=== PATIENT | female | born 1980 | race Native Hawaiian/Other Pacific Islander ===

== ENCOUNTER 2017-05-21 22:43 | Emergency (ER) | payer OTHER ==
[~2017-05-21] VITALS: Ht 149.9 cm; Wt 49.9 kg
[2017-05-21] MEDS ORDERED: ALPR0.5T24 PO (23:28)
[2017-05-22 00:12] LABS: PLATELET COUNT 241 K/uL (152-353)
[2017-05-22 00:18] LABS: POTASSIUM 3.3 mmol/L (3.6-5.2); SODIUM 139 mmol/L (136-145)
== END 2017-05-22 01:53 | disposition home or self-care (01) ==
LOC: ED 22:43
DX: G43.909 Migraine, unspecified, not intractable, without status migrainosus (principal)
CPT/HCPCS: 80053; 85027; 96374; 96375; 99284; J1100; J1200; J1885; J2405; J2550

== ENCOUNTER 2018-04-10 22:47 | Emergency (ER) | payer OTHER ==
[~2018-04-10] VITALS: Ht 149.9 cm; Wt 52.2 kg
[~2018-04-10 22:47] MED LIST: ALPR0.5T24 PO
== END 2018-04-11 00:10 | disposition home or self-care (01) ==
LOC: ED 22:47
DX: I10 Essential (primary) hypertension (principal)
CPT/HCPCS: 93005; 99283

== ENCOUNTER 2018-11-15 14:58 | Emergency (ER) | payer OTHER ==
[~2018-11-15] VITALS: Ht 149.9 cm; Wt 49.9 kg
[2018-11-15 15:06] VITALS: TEMP 97.9
[2018-11-15] MEDS ORDERED: LISI5TAB10 PO (15:10)
[2018-11-15 15:27] LABS: PLATELET COUNT 179 K/uL (152-353)
[2018-11-15 15:55] VITALS: BP 142/94
== END 2018-11-15 16:05 | disposition home or self-care (01) ==
LOC: ED 14:58
DX: J32.0 Chronic maxillary sinusitis (principal); J32.2 Chronic ethmoidal sinusitis
CPT/HCPCS: 36415; 85027; 99283

== ENCOUNTER 2020-08-19 00:03 | Emergency (ER) | payer OTHER ==
[~2020-08-19] VITALS: Ht 149.9 cm; Wt 49.9 kg
[~2020-08-19 00:03] MED LIST changes: +LISI5TAB10 PO
[2020-08-19 00:54] LABS: PLATELET COUNT 161 K/uL (152-353)
[2020-08-19 01:22] LABS: POTASSIUM 3.9 mmol/L (3.6-5.2)
[2020-08-19 01:55] VITALS: BP 119/79; TEMP 98.7
== END 2020-08-19 01:55 | disposition home or self-care (01) ==
LOC: ED 00:03
PROVIDERS: Emergency Medicine Emergency Medical Services
DX: J20.9 Acute bronchitis, unspecified (principal)
CPT/HCPCS: 36415; 80053; 85027; 94664; 96360; 96361; 96375; 99284; J1100; J2405

== ENCOUNTER 2021-01-15 08:31 | Outpatient (CLI) | payer OTHER | END 2021-01-15 19:25 | disposition home or self-care (01) | LOC: MRI 08:31 | PROVIDERS: ATTEND Psychiatry & Neurology Neurology | DX: Z86.03 Personal history of neoplasm of uncertain behavior (principal) | CPT/HCPCS: A9576 ==

== ENCOUNTER 2021-05-18 16:08 | Emergency (ER) | payer OTHER ==
[2021-05-26 09:53] LABS: SODIUM 138 mmol/L (136-145)
[2021-05-26 09:54] LABS: POTASSIUM 3.4 mmol/L (3.6-5.2)
[2021-05-26 09:56] LABS: PLATELET COUNT 162 K/uL (152-353)
== END 2021-05-18 18:50 | disposition home or self-care (01) ==
LOC: ED 16:08
PROVIDERS: Hospitalist
DX: R07.89 Other chest pain (principal); K21.9 Gastro-esophageal reflux disease without esophagitis; F41.8 Other specified anxiety disorders
CPT/HCPCS: 36415; 80053; 80320; 81000; 81025; 82550; 82553; 84484; 85027; 85610; 85730; 93005; 96360; 96375; 99284; J2405

== ENCOUNTER 2021-06-05 15:16 | Outpatient (CLI) | payer OTHER | END 2021-06-05 19:17 | disposition home or self-care (01) | LOC: MRI 15:16 | PROVIDERS: ATTEND Psychiatry & Neurology Neurology | DX: G43.019 Migraine without aura, intractable, without status migrainosus (principal); D32.9 Benign neoplasm of meninges, unspecified; H53.9 Unspecified visual disturbance; R47.1 Dysarthria and anarthria | CPT/HCPCS: A9576 ==

== ENCOUNTER 2022-03-12 08:20 | Outpatient (CLI) | payer OTHER | END 2022-03-12 19:07 | disposition home or self-care (01) | LOC: MRI 08:20 | PROVIDERS: ATTEND Nurse Practitioner Adult Health | DX: G43.019 Migraine without aura, intractable, without status migrainosus (principal); D32.9 Benign neoplasm of meninges, unspecified; R47.1 Dysarthria and anarthria; R56.9 Unspecified convulsions; R55 Syncope and collapse | CPT/HCPCS: 36415; 82565; 84520; A9576 ==